=== PATIENT | female | born 1945 | race African-American/Black ===

== ENCOUNTER 2021-03-22 12:30 | Inpatient (IN) | payer OTHER ==
[2021-03-22] VITALS (13 sets, daily range): BP systolic 129–150; BP diastolic 75–94
[~2021-03-22] VITALS: Ht 175.3 cm; Wt 84.4 kg
[~2021-03-22 12:30] MED LIST: ACETYLCYST200 MG/1 M PO; ALDACTONE25 MG PO; ASPIRIN325 PO; CARVEDILOL25 MG PO; FUROSEMIDE 40 M40 M1 PO; MULTIVITAMINS PO; NEXIUM40 MG PO; PRAVACHOL40 MG PO; VICODIN PO; ZOFRAN4 MG PO; [UNRECOGNIZED DRUG - REMARK]
[2021-03-22] MEDS ORDERED: ALLOPURINOL 10100 M3 PO (13:13)
[2021-03-22] MEDS ORDERED: VITAMIN D310 MC2 PO (13:13)
[2021-03-22] MEDS ORDERED: ENTRESTO 24 MG1 EACH PO (13:14)
[2021-03-22] MEDS ORDERED: B COMPLEX1 EACH PO (13:14)
[2021-03-22 13:15] LABS: ABSOLUTE EOSINOPHILS 0.2 thou/uL (0.0-0.7); ABSOLUTE LYMPHOCYTES 0.9 thou/uL (0.8-5.3); ABSOLUTE MONOCYTES 0.4 thou/uL (0.0-1.2); ABSOLUTE NEUTROPHILS 1.2 thou/uL (1.6-8.1); BASOPHILS 1.2 %; HEMATOCRIT 39.7 % (37.0-47.0); HEMOGLOBIN 13.1 gm/dL (12.0-15.0); MCH 30.7 pg (26.0-34.0); MCV 92.9 fL (80.0-100.0); MONOCYTES 16.2 %; MPV 10.4 fl. (7.2-11.1); NUCLEATED RBCS 0 /100WBC; PLATELET COUNT* 129 thou/uL (150-400); POLYS 44.6 %; RBC 4.28 mil/uL (4.20-5.00); RDW-CV 13.9 % (10.5-14.5); WBC 2.7 thou/uL (4.0-11.0)
[2021-03-22 13:32] LABS: CALCIUM 8.9 mg/dL (8.5-10.1); CREATININE 1.5 mg/dL (0.6-1.3); POTASSIUM 4.1 mmol/L (3.5-5.1)
[2021-03-22 13:40] LABS: ALBUMIN 3.3 g/dL (3.4-5.0); MAGNESIUM 2.3 mg/dL (1.8-2.4)
--- NOTE | 2021-03-22 14:23 | EKG ---
[place] [address] ELECTROCARDIOGRAM REPORT Name: LOVELYMILDRED Akilah Room: [facility]#: [id number] Admission: 03/22/21 Attend Phys: Discharge: Date of : 41 Date of Service: 03/22/21 1258 Report #: [id number] THIS REPORT FOR: //name// [place] [facility] Test Date: 2021-03-22 Test Time: 12:58:35 Pat Name: MILDRED MURRY Department: Room: Gender: [employer] Production Manager: : 1945 Requested By: Carlos Wilson Order Number: [id number] MD: Caleb Bowen Measurements Intervals [place] Rate: 74 P: 55 FL: 190 QRS: -45 QRSD: 131 T: 121 QT: 436 QTc: 484 Interpretive Statements Sinus rhythm Left axis left ventricular hypertrophy with repolarization changes No previous ECG available for comparison Electronically Signed On 03-22-2021 14:23:09 CDT by Caleb Bowen [email or web address] <ELECTRONICALLY SIGNED> By: Caleb Bowen MD, [facility] 03/22/21 1423 1258 1258 Caleb Bowen MD, FACC /EPI
--- NOTE | 2021-03-22 16:43 | CARD ---
[address] [address] CARDIAC CATH REPORT Name: MILDRDE MURRY Room: [address] IN ..#: [id number] Admission: 03/22/21 Attend Phys: Hayden Grant Discharge: Date of : 41 Report #: [id number] THIS REPORT FOR: cc: Shyanne Burris MD, Julie MD Liston, Michael J. MD [facility] ~ APPROVED REPORT Study performed: 03/22/2021 15:20:39 Patient Details Patient Status: ED Room #: The patient is a 75 year-old female Event Personnel Dr. Alvarado, Mirian Osorio RN, Karen Awad RTR, Rosanna Julien RTR, Cheryl Newman RTR Procedures Performed Left heart cath with LV pressures Indication Unstable angina , Chest pain Procedure Narrative The patient was brought urgently to the Cardiac Catheterization Laboratory and was prepped and draped in a sterile manner. The right femoral was infiltrated with 2% Lidocaine subcutaneous anesthesia. IV conscious sedation was used throughout procedure with appropriate monitoring and was performed in the presence of a registered nurse who was an independent trained observer other than the physician performing the procedure. A 6Fr [place] sheath was inserted into the right femoral artery. Coronary angiography was performed using coronary diagnostic catheters. The right coronary system was accessed and visualized with a Diagnostic 6Fr JR4 catheter. The left coronary system was accessed and visualized with a Diagnostic 6Fr JL4 catheter. Left ventricular/Aortic Valve gradient assessed via catheter pullback. Pre-demployment femoral angiogram was performed in [place]. Closure device was deployed with a 6 Fr Mynx. The patient tolerated the procedure well and there were no complications associated with the procedure. There was no hematoma. Intraoperative Conscious Sedation Sedation start time: 1537 Case end Time: [address] [place] [address] CARDIAC CATH REPORT Name: MILDRED MURRY Akilah Room: [address] IN [facility]#: [id number] Admission: 03/22/21 Attend Phys: Hayden Grant Discharge: Date of : 41 Report #: [id number] Fentanyl 25.0 mcg Versed 1.0 mg Fluoro Time: 3.6 minutes Dose: DAP 83764 cGycm2 364 mGy Contrast Type and Amount: Visipaque 65 ml Diagnostic Cath Left Main The left main coronary artery is short and normal. LAD The left anterior descending coronary artery is mildly diffusely plaqued with 10% plaquing in the proximal mid and distal portion. No occlusive disease was noted. Diagonal 1 A moderate-sized first diagonal branch is normal. Diagonal 2 A small in caliber second diagonal branch is normal. Diagonal 3 A moderate sized third diagonal branch is normal. Circumflex The circumflex coronary artery is normal in its proximal mid and distal portion. OM1 A small first obtuse marginal branch is normal. OM2 A large and branched second obtuse marginal branch is normal. Right Coronary The right coronary artery is widely patent with some mild plaquing noted. There is 10% proximal 30% mid and 10% distal plaquing. No hemodynamically significant stenoses were noted. R PDA The right PDA is a large branch and normal. RPLV The right posterior lateral LV branch is a moderate-sized branch vessel that is normal. Ramus A small ramus with obtuse marginal distribution is normal. Left Ventriculography Left Ventriculography was not performed. Ejection Fraction was 20-25% based off patient's Echocardiogram. Hemodynamics The aortic pressure is 155/75 mmHg with a mean of 63 mmHg. The left ventricular pressure is 151/3 mmHg with a mean of 24 mmHg. The left ventricular end diastolic pressure is 24 mmHg. Conclusion 1. Minimal nonocclusive coronary artery plaquing. 2. Moderately elevated left ventricular end-diastolic pressure consistent with acute on chronic diastolic heart failure. 3. History of dilated [place] [address] CARDIAC CATH REPORT Name: IMLDRED MURRY Room: [address] IN [facility]#: [id number] Admission: 03/22/21 Attend Phys: Hayden Grant Discharge: Date of : 41 Report #: [id number] systolic heart failure. Recommendations 1. Continue aggressive risk factor modification and medical management. <ELECTRONICALLY SIGNED> By: Carter Alvarado MD, FACC 03/22/211642 42 42Michaemeggan Alvarado MD, FACC /INF
[2021-03-23] VITALS: BP 125/69
[2021-03-23 04:00] VITALS: BP 135/77
[2021-03-23 05:14] LABS: HEMOGLOBIN 12.4 gm/dL (12.0-15.0)
[2021-03-23 05:16] LABS: ABSOLUTE EOSINOPHILS 0.2 thou/uL (0.0-0.7); ABSOLUTE LYMPHOCYTES 0.8 thou/uL (0.8-5.3); ABSOLUTE MONOCYTES 0.4 thou/uL (0.0-1.2); ABSOLUTE NEUTROPHILS 1.5 thou/uL (1.6-8.1); BASOPHILS 1.5 %; EOSINOPHILS 5.4 %; HEMATOCRIT 37.3 % (37.0-47.0); LYMPHOCYTES 27.5 %; MCH 30.5 pg (26.0-34.0); MCHC 33.2 g/dL (28.0-37.0); MONOCYTES 15.2 %; MPV 11.2 fl. (7.2-11.1); NUCLEATED RBCS 0 /100WBC; PLATELET COUNT* 131 thou/uL (150-400); POLYS 50.4 %; RBC 4.05 mil/uL (4.20-5.00); WBC 2.9 thou/uL (4.0-11.0)
[2021-03-23 05:23] LABS: ANION GAP 9 mmol/L (7-16); BUN 20 mg/dL (7-18); CALCIUM 8.6 mg/dL (8.5-10.1); CHLORIDE 108 mmol/L (98-107); CHOLESTEROL 148 mg/dL (<200); CO2 26 mmol/L (21-32); CREATININE 1.5 mg/dL (0.6-1.3); GLUCOSE 92 mg/dL (70-99); HDL CHOLESTEROL 48 mg/dL (>40); LDL CHOLESTEROL 81 mg/dL (<100); POTASSIUM 3.7 mmol/L (3.5-5.1); SODIUM 143 mmol/L (136-145); TC:HDL 3.1 Ratio (Not establshd); TRIGLYCERIDE 96 mg/dL (<150); VLDL 19 mg/dL (<40)
[2021-03-23 05:40] LABS: SERUM ASSESSMENT CLEAR
[2021-03-23 08:00] VITALS: BP 115/64
[2021-03-23 09:22] LABS: CALCIUM 8.9 mg/dL (8.5-10.1); CREATININE 1.6 mg/dL (0.6-1.3); POTASSIUM 3.8 mmol/L (3.5-5.1)
[2021-03-23 09:25] LABS: MAGNESIUM 2.2 mg/dL (1.8-2.4); PHOSPHORUS* 3.8 mg/dL (2.5-4.9)
[2021-03-23 16:00] VITALS: BP 116/64
[2021-03-23 20:00] VITALS: BP 130/77
[2021-03-24 00:46] VITALS: BP 112/64
[2021-03-24 04:59] LABS: ABSOLUTE EOSINOPHILS 0.1 thou/uL (0.0-0.7); ABSOLUTE LYMPHOCYTES 0.7 thou/uL (0.8-5.3); ABSOLUTE MONOCYTES 0.4 thou/uL (0.0-1.2); BASOPHILS 0.7 %; EOSINOPHILS 2.5 %; HEMATOCRIT 37.6 % (37.0-47.0); HEMOGLOBIN 12.6 gm/dL (12.0-15.0); LYMPHOCYTES 16.6 %; MCH 30.6 pg (26.0-34.0); MCHC 33.5 g/dL (28.0-37.0); MCV 91.3 fL (80.0-100.0); MONOCYTES 8.4 %; MPV 10.5 fl. (7.2-11.1); NUCLEATED RBCS 0 /100WBC; PLATELET COUNT* 132 thou/uL (150-400); POLYS 71.8 %; RBC 4.12 mil/uL (4.20-5.00); WBC 4.2 thou/uL (4.0-11.0)
[2021-03-24 05:14] LABS: CALCIUM 8.5 mg/dL (8.5-10.1); CREATININE 1.6 mg/dL (0.6-1.3); POTASSIUM 3.6 mmol/L (3.5-5.1)
[2021-03-24 05:33] VITALS: BP 114/68
[2021-03-24 08:30] VITALS: BP 104/60
--- NOTE | 2021-03-24 09:48 | CON ---
[address] [address] CONSULTATION Name: MILDRED MURRY Room: [address] M.R.#: [id number] Admission: 03/22/21 Attend Phys: Hayden Grant Discharge: Date of : 41 Report #: [id number] THIS REPORT FOR: cc: Shyanne Burris MD,Shyanne Alvarado,Carter Durham MD FACC ~ cc: Kevin Smith MD FACC, Shyanne Burris DATE OF CONSULTATION: 03/22/2021 CARDIOLOGY CONSULTATION INDICATION: Heart failure and chest pain. HISTORY OF PRESENT ILLNESS: The patient is a very pleasant 75-year-old -Citizen Of [place] female with history of nonischemic cardiomyopathy diagnosed many years ago. Catheterization at the time of diagnosis was unremarkable. The patient has had a decline in her ejection fraction to approximately 20-25%, on most recent noninvasive studies. Stress testing 3 years ago showed cardiomyopathy with no evidence of ischemia or infarct. For the past several weeks, she has been noting increasing shortness of breath, orthopnea and midsternal chest pressure and discomfort, especially with activity. The patient was seen at outside hospital a week ago and felt to have congestive heart failure and viral syndrome. She was diuresed and discharged to home. She continues to have fairly significant dyspnea on exertion and chest discomfort with activity. She has mild orthopnea. Initial troponin here is minimally elevated. Echocardiogram and chest x-ray are pending. PAST MEDICAL HISTORY: 1. Dilated cardiomyopathy. 2. Chronic combined heart failure. 3. Hypertension. 4. Aortic valvular insufficiency. 5. Status post ICD placement for primary prevention. 6. Chronic renal insufficiency. 7. History of left renal cell carcinoma, status post nephrectomy. 8. Cholecystectomy. 9. Hysterectomy with cervical cancer. 10. Upper right lobectomy. 11. Total knee replacement on the right. HOME MEDICATIONS: Vicodin one tablet q.4 hours p.r.n., carvedilol 25 mg 2 tablets p.o. b.i.d., Nexium 40 mg daily, Zofran 4 mg q. 4 hours p.r.n. nausea, multivitamin one daily, furosemide 40 mg p.o. daily, pravastatin 40 mg p.o. at bedtime, aspirin 81 mg daily, allopurinol 100 mg b.i.d., vitamin D3 [place] [address] CONSULTATION Name: LOVELYMILDRED Room: [address]#: [id number] Admission: 03/22/21 Attend Phys: Hayden Grant Discharge: Date of : 41 Report #: [id number], B complex one tablet daily, Entresto 24/26 mg 1-1/2 tablets b.i.d. SOCIAL HISTORY: The patient denies use of tobacco or alcohol. ALLERGIES: None documented. FAMILY HISTORY: Noncontributory. REVIEW OF SYSTEMS: A 14-point review of systems as per HPI, otherwise unremarkable. PHYSICAL EXAMINATION: VITAL SIGNS: Blood pressure is 146/92, pulse is 106 and regular. GENERAL: This is a pleasant female who does not appear to be in overt distress. HEENT: Head is normocephalic, atraumatic. Extraocular muscles intact. Mucous membranes are moist. NECK: Shows no jugular venous distention. CHEST: Reveals diminished breath sounds with basilar rales. CARDIAC: Reveals a regular rhythm without obvious gallop or murmur. ABDOMEN: Reveals normal bowel sounds. Abdomen is soft, nontender. EXTREMITIES: Shows no edema. SKIN: Warm and dry. DIAGNOSTIC DATA: A 12-lead EKG shows sinus rhythm with left bundle branch block. LABORATORY DATA: Reviewed. Sodium 139, potassium 4.1, chloride 104, bicarb 27, BUN 18, creatinine 1.5, serum glucose 90. LFTs within normal limits. Initial high sensitivity troponin 102. NT-proBNP 7134. White blood cell count low at 2.7. The platelet count low at 129,000. Hemoglobin 13.1, hematocrit 39.7. IMPRESSION AND RECOMMENDATIONS: 1. Chest discomfort concerning for progressive angina. We will proceed with angiography to further evaluate. Further intervention pending those results. 2. Congestive heart failure with acute exacerbation. The patient has acute on chronic combined heart failure. After angiographic evaluation of coronary arteries we will continue with diuresis. The patient is on heart failure regimen presently. We will adjust medications as tolerated. 3. Hypertension. Systolic blood pressure will improve with diuresis and titration of her heart failure regimen. <ELECTRONICALLY SIGNED> By: Carter Alvarado MD, FACC 03/24/21 0948 1403 1501Micjúnior Alvarado MD, FACC /nt
[2021-03-24 12:00] VITALS: BP 89/56
[2021-03-24] MEDS ORDERED: BUMETANIDE 1 MG1 M1 PO (12:07)
[2021-03-24] MEDS ORDERED: KLOR-CON 10 ER10 MEQ PO (12:11)
[2021-03-24 13:56] VITALS: BP 89/56
== END 2021-03-24 14:07 | disposition home or self-care (01) | DRG 286 ==
LOC: M.ERS 12:30 → M.2W 14:19 → M.TBA-ER 14:19 → M.ERS 15:31 → M.2W 16:25
PROVIDERS: Emergency Medicine Emergency Medical Services; Internal Medicine Cardiovascular Disease; ADMIT Internal Medicine; ATTEND Internal Medicine
DX: I24.9 Acute ischemic heart disease, unspecified (principal); I50.43 Acute on chronic combined systolic (congestive) and diastolic (congestive) heart failure; I13.0 Hypertensive heart and chronic kidney disease with heart failure and stage 1 through stage 4 chronic kidney disease, or unspecified chronic kidney disease; N17.9 Acute kidney failure, unspecified; I42.0 Dilated cardiomyopathy; I44.7 Left bundle-branch block, unspecified; Z96.651 Presence of right artificial knee joint; N18.9 Chronic kidney disease, unspecified; J44.9 Chronic obstructive pulmonary disease, unspecified; M10.9 Gout, unspecified; D69.6 Thrombocytopenia, unspecified; D72.819 Decreased white blood cell count, unspecified; E87.6 Hypokalemia; Z20.822 Contact with and (suspected) exposure to COVID-19; Z85.528 Personal history of other malignant neoplasm of kidney; Z90.710 Acquired absence of both cervix and uterus; Z85.41 Personal history of malignant neoplasm of cervix uteri; Z95.810 Presence of automatic (implantable) cardiac defibrillator; Z90.5 Acquired absence of kidney; Z23 Encounter for immunization